=== PATIENT | male | born 1985 | race Caucasian/White ===

== ENCOUNTER 2017-04-28 10:37 | Emergency (ER) | payer MEDICAID, SELFPAY ==
[~2017-04-28] VITALS: Ht 167.6 cm; Wt 70.5 kg
[2017-04-28] MEDS ORDERED: OXYC1TAB23 PO (10:52)
[2017-04-28 12:39] VITALS: BP 127/90
== END 2017-04-28 12:40 | disposition home or self-care (01) ==
LOC: M ED 11:48
DX: M79.605 Pain in left leg (principal); Z87.39 Personal history of other diseases of the musculoskeletal system and connective tissue

== ENCOUNTER → 2017-05-05 | Outpatient (CLI) | payer SELFPAY ==
[~2017-05-05] MED LIST: OXYC1TAB23 PO
--- NOTE | 2017-05-06 08:43 | REP ---
MRI STUDY OF THE LEFT TIBIA AND FIBULA WITHOUT CONTRAST: HISTORY: Question ligament injury. The patient relates that plain radiographs from [facility] and orthopedic group demonstrate a high fibular fracture and an ankle fracture. TECHNIQUE: Sagittal, axial and coronal imaging planes utilized. T1 and T2-weighted scans are obtained. Sequences include spin echo and STIR sequences. FINDINGS: There is a prominent marrow edema pattern in the distal tibia involving the epiphysis and the posterior "malleolar" surface of the distal tibia. No definite cortical discontinuity is seen on these MR images. There is some adjacent soft tissue swelling. The distal fibula appears intact. There is a small quantity of ankle joint fluid. T2-weighted images in the axial plane at the level of the ankle show poor definition and some increased signal intensity along the course of the anterior talofibular ligament. The anterior inferior tibiofibular ligament appears to be disrupted. The posterior inferior tibiofibular ligament does not appear to be disrupted. The interosseous membrane appears intact through the calf. Proximally, there is a zone of prominent marrow edema in the proximal fibular head particularly posteriorly consistent with a nondisplaced fracture here. There is some adjacent soft tissue edema. There is a zone of marrow edema in the posterior tibial plateau medially consistent with marrow contusion. No other significant finding. IMPRESSION: Proximal fibular head and distal tibial posterior malleolar bony injuries. There is adjacent extraosseous soft tissue swelling at each site. Axial T2-weighted scans of the ankle suggest injuries to the anterior talofibular and the anterior inferior tibiofibular ligaments. Signed by Jovanny Pacheco MD 05/06/2017 03:30 P
== END ==
LOC: M RAD 18:35
PROVIDERS: ATTEND Orthopaedic Surgery
DX: S82.892A Other fracture of left lower leg, initial encounter for closed fracture (principal); W18.30XA Fall on same level, unspecified, initial encounter; Y92.009 Unspecified place in unspecified non-institutional (private) residence as the place of occurrence of the external cause

== ENCOUNTER 2017-08-04 15:19 | Emergency (ER) | payer SELFPAY ==
[~2017-08-04] VITALS: Ht 167.6 cm; Wt 68.2 kg
--- NOTE | 2017-08-04 17:05 | REP ---
LEFT TIBIA/FIBULA, FOUR VIEWS: HISTORY: Fall. There is no acute fracture or dislocation. The joint spaces are normal in appearance. IMPRESSION:There is no acute fracture or dislocation. Signed by Chidi Hung MD 08/05/2017 07:55 A
[2017-08-04 17:13] VITALS: BP 125/77
== END 2017-08-04 17:19 | disposition home or self-care (01) ==
LOC: M ED 15:19
DX: M79.605 Pain in left leg (principal); F17.210 Nicotine dependence, cigarettes, uncomplicated; Z87.81 Personal history of (healed) traumatic fracture; Z98.890 Other specified postprocedural states

== ENCOUNTER 2021-07-09 15:44 | Emergency (ER) | payer SELFPAY ==
[~2021-07-09] VITALS: Ht 167.6 cm; Wt 63.6 kg
[2021-07-09 15:57] VITALS: BP 150/74
== END 2021-07-09 16:45 | disposition left against medical advice (07) ==
LOC: M ED 15:44
DX: Z53.29 Procedure and treatment not carried out because of patient's decision for other reasons (principal)

== ENCOUNTER 2021-07-25 19:11 | Inpatient (IN) | payer OTHER, SELFPAY ==
[2021-07-25] MEDS ORDERED: LORazepam 2 MG TAB PO ONE (20:45)
--- NOTE | 2021-07-25 20:56 | REPVR ---
PROCEDURE INFORMATION: Exam: CT Head Without Contrast Exam date and time: 07/25/2021 8:20 PM Age: 36 years old Clinical indication: Altered mental status/memory loss; Additional info: AMS TECHNIQUE: Imaging protocol: Computed tomography of the head without contrast. Radiation optimization: All CT scans at this facility use at least one of these dose optimization techniques: automated exposure control; mA and/or kV adjustment per patient size (includes targeted exams where dose is matched to clinical indication); or iterative reconstruction. COMPARISON: No relevant prior studies available. FINDINGS: Brain: Normal. No hemorrhage. Unremarkable white matter. No mass effect. Cerebral ventricles: No ventriculomegaly. Paranasal sinuses: Visualized sinuses are unremarkable. No fluid levels. Mastoid air cells: Visualized mastoid air cells are well aerated. Bones/joints: Unremarkable. No acute fracture. Soft tissues: Unremarkable. IMPRESSION: No acute intracranial abnormality. Electronically signed by: Wade Mccann On 07/25/2021 20:55:57 PM
[2021-07-25 21:24] LABS: HEMATOCRIT 37.1 % (42.0-52.0); HEMOGLOBIN 12.3 g/dl (13.5-17.5); MEAN CORPUSCULAR HGB CONC 33.2 g/dl (32.0-36.5); MEAN CORPUSCULAR VOLUME 81.5 fl (80.0-96.0); PLATELET COUNT, AUTOMATED 495 10^3/uL (150-450); RED BLOOD COUNT 4.55 10^6/uL (4.30-6.10); WHITE BLOOD COUNT 8.4 10^3/uL (4.0-10.0)
[2021-07-25 21:35] LABS: ACETAMINOPHEN LEVEL < 2.0 UG/ML (10.0-30.0); ALBUMIN 3.3 GM/DL (3.2-5.2); ALT/SGPT 47 U/L (12-78); BILIRUBIN,DIRECT 0.1 MG/DL (0.0-0.2); BILIRUBIN,TOTAL 0.5 MG/DL (0.2-1.0); BLOOD UREA NITROGEN 15 MG/DL (7-18); CALCIUM LEVEL 9.2 MG/DL (8.5-10.1); CARBON DIOXIDE LEVEL 26 MEQ/L (21-32); CHLORIDE LEVEL 99 MEQ/L (98-107); ETHYL ALCOHOL (ETHANOL) 0.003 % (0.000-0.010); GLOMERULAR FILTRATION RATE > 60.0 (>60); GLUCOSE, FASTING 83 MG/DL (70-100); POTASSIUM SERUM 3.9 MEQ/L (3.5-5.1); SALICYLATE LEVEL < 1.7 MG/DL (5.0-30.0); SODIUM LEVEL 136 MEQ/L (136-145); TOTAL PROTEIN 6.9 GM/DL (6.4-8.2)
[2021-07-25 22:14] LABS: FREE T4 0.54 NG/DL (0.76-1.46)
[2021-07-26 01:00] LABS: AMPHETAMINES LEVEL URINE POSITIVE (NEGATIVE); BARBITURATES URINE NEGATIVE (NEGATIVE); BENZODIAZEPINES URINE NEGATIVE (NEGATIVE); CANNABINOIDS URINE NEGATIVE (NEGATIVE); COCAINE METABOLITE URINE NEGATIVE (NEGATIVE); METHADONE URINE NEGATIVE (NEGATIVE); OPIATES URINE NEGATIVE (NEGATIVE); PHENCYCLIDINE URINE NEGATIVE (NEGATIVE)
[2021-07-26 01:13] LABS: RSV AMPLIFICATION NEGATIVE (NEGATIVE)
[2021-07-26] MEDS ORDERED: MAALOX 30 ML SUSP *UDC PO PRN (01:20)
[2021-07-26] MEDS ORDERED: MOM 30ML SUSPENSION UDC PO PRN (01:20)
[2021-07-26] MEDS ORDERED: OLANZapine ORAL DISINTEGRATING TAB 5MG PO PRN (01:20)
[2021-07-26] MEDS ORDERED: NICOTINE 21MG/24HR 1 EA TRANSDERMAL TD PRN (01:20)
[2021-07-26] MEDS ORDERED: HOME MED LIST COMPLETE! XX SCH (01:35)
--- NOTE | 2021-07-26 05:19 | ECGEPIP ---
[facility] - ED Test Date: 2021-07-25 Pat Name: ANTONELLA GUO Department: Room: - Gender: Male Legal Billing Specialist: zachary : 1985 Requested By: Semaj Corona Order Number: [id number] Reading MD: Semaj Munoz Measurements Intervals Hinkley Rate: 96 P: 58 IN: 114 QRS: 66 QRSD: 100 T: 23 QT: 368 QTc: 464 Interpretive Statements Normal sinus rhythm NONSPECIFIC T WAVE ABNORMALITY(S) NO PRIORS FOR COMPARISON Electronically Signed on 07-26-2021 5:19:37 EDT by Semaj Munoz
[2021-07-26 10:05] VITALS: BP 138/70
--- NOTE | 2021-07-26 12:13 | MHHPEPDOC ---
General Date Of Admission: Jul 26, 2021 Legal Status: 9.39 Chief Complaint "leave me alone" History of Present Illness HISTORY OF THE PRESENT ILLNESS: Patient is a 36 -year-old , male, with history of polysubstance abuse, meth recently, remote history of opioid use. Patient was lying in bed, desponded, poorly interactive agrees to medications for agitation. Most of the information was gathered from chart review. Patient not agreeable to providing information such as release of information and would rather just lye in bed. When asked if he give him agitation notes that he was agreeable for acute stabilization. per paraphrase of PSA evaluation was brought in by police on 45 pickup order after ED provider was called by patient's mother Lorin Dawson. She was concerned for his safety and stated he made homicidal threats toward his grandfather who is 82 years old and he resides with, was also making suicidal statement. Reported he was psychotic, paranoid, and had thoughts of pouring bleach on himself to get rid of symptoms of delusional parasitosis. Lab tox screen positive for methamphetamine. Psychiatric Review of Systems Depression (2 or more weeks): depressed mood Past Psychiatric History Per chart review previous hospitalization [place] ages [age], patient had reported it was due to arguing with his children's mother that brought him in. No medications on file Past Medical History Medical Problems History close left ankle fracture, unable to get further information due to patient not being compliant with interview, lying in bed and appearing internally preoccupied Family Medical/Psychiatric HX Medical Problems None indicated Psychiatric Disorders: No Addiction: No Suicide Attemps/Completions: No Addiction History opioids (Remote history of IV heroin), methamphetamines (Daily methamphetamine use corroborated by 8-year-old grandfather whom he lives with) Social History Childhood: Unable to assess, patient noncompliant with interview Abuse/Trauma:Unable to assess, patient noncompliant with interview Current Living Situation: Lives in [facility] with 82-year-old grandpa Education: Unclear Employment: [employer] per chart Social Support: Mother and grandpa Legal: Unclear Marital: Single Per chart review Mental Status Examination General Appearance: unkempt, disheveled Build: average, thin Demeanor: hostile, mistrustful, withdrawn, preoccupied, guarded Eye Contact: avoidant Activity: slowed, anxious Behavior: uncooperative, resistant, withdrawn Speech: clear, slow, low in volume, non-spontaneous Mood: depressed Affect: flat, disorganized Thought Process: slow Thought Content (Delusions): none reported Thought Content (Other): none reported Thought Content (Aggressive): none reported Perception (Hallucinations): none reported Perception (Other): none reported Cognition (Impairment of): none reported Oriented: Awake, Alert Insight: poor Judgment: Poor Psychosis: Denies Diagnoses Substance-induced psychotic disorder Rule out schizophrenia, schizoaffective disorder, bipolar 1/2 A-FIB/CHADSVASC A-FIB History Current/History of A-Fib/PAF?: No Current PO Anticoag Therapy: No Age/Risk Factor Scoring CHADSVASC: CHADSVASC Response (Comments) Value Age Risk Factor Age < 65 years old 0 Gender Risk Factor Male 0 Hx of CHF No 0 Hx of HTN No 0 Hx of Stroke/TIA/or VTE No 0 Hx of Diabetes No 0 Hx of Vascular Disease No 0 Total 0 Treatment Treatment ordered: NONE Reason Anticoagulant not given: Not indicated/[id number], Other (Defer to hospitalist team) Other reason anticoagulant not: Pending hospitalist evaluation Assessment Patient is a 36-year-old male with unknown past psychiatric history who presents after mother called on pickup order to bring him in due to bizarre disorganized behavior, including delusional parasitosis and wanting to bleach himself to clean out the bugs, also was positive for methamphetamine despite denying any use recently and reportedly not having any outpatient medications per chart review. Thyroid panel is elevated showing a TSH of 35, and a low T4. Spoke team will be made aware to the work-up for thyroid supplementation in cont ext of hypothyroidism. Reordered a TSH for tomorrow. Initial Treatment Plan 1. Patient was admitted on a [9.39] status. 2. Complete history was obtained. 3. With patients permission, family will be contacted and database will be expanded. 4. Patients medication regimen will be reviewed and changed accordingly. 5. Patient will be provided with protected environment. 6. Patient will be treated with individual, group, and milieu therapies. 7. Patient will receive supportive psych-education. 8. Discharge planning will commence immediately. 9. Outpatient follow-up treatment will be strongly recommended. 10. The initial treatment plan will focus initially on: * Depression/psychosis * Risk for suicide. ESTIMATED LENGTH OF STAY: 2-7 DAYS. TIME SPENT COUNSELING AND COORDINATING INITIAL CARE: 40 minutes. Tobacco Cessation Screen If Patient is a Smoker yes Tobacco Cessation Tx Ordered?: Yes Ordered/Pending Vital Signs Vital Signs Date Time Temp Pulse Resp B/P (MAP) Pulse Ox O2 Delivery O2 Flow Rate FiO2 07/26/21 10:05 98.2 82 18 138/70 100 Room Air Laboratory Data 24H Labs Laboratory Tests 2 07/25/21 20:34: Nucleated Red Blood Cells % (auto) 0.0, Anion Gap 11, Glomerular Filtration Rate > 60.0, Calcium Level 9.2, Total Bilirubin 0.5, Direct Bilirubin 0.1, Aspartate Amino Transf (AST/SGOT) 47H, Alanine Aminotransferase (ALT/SGPT) 47, Alkaline Phosphatase 75, Total Protein 6.9, Albumin 3.3, Albumin/Globulin Ratio 0.9, Thyroid Stimulating Hormone (TSH) 30.500H, Free Thyroxine 0.54L, Salicylates Level < 1.7L, Acetaminophen Level < 2.0L, Ethyl Alcohol Level 0.003 07/25/21 23:51: Urine Opiates Screen NEGATIVE, Urine Methadone Screen NEGATIVE, Urine Barbiturates Screen NEGATIVE, Urine Phencyclidine Screen NEGATIVE, Urine Amphetamines Screen POSITIVEH, Urine Benzodiazepines Screen NEGATIVE, Urine Cocaine Metabolite Screen NEGATIVE, Urine Cannabinoids Screen NEGATIVE 07/26/21 00:31: Coronavirus (COVID-19)(PCR) NEGATIVE, Influenza Type A (RT-PCR) NEGATIVE, Influenza Type B (RT-PCR) NEGATIVE, Respiratory Syncytial Virus (PCR) NEGATIVE CBC/BMP Laboratory Tests 07/25/21 20:34 Medications No Active Prescriptions or Reported Meds Allergies Coded Allergies: No Known Allergies (Unverified , 04/28/17) MACHO HERNANDEZ MD Jul 26, 2021 12:13
--- NOTE | 2021-07-26 12:56 | MHIPNPDOC ---
[facility] Progress Note Progress Note DATE OF SERVICE: 07/26/21 spoke with pharmacy to do medrec, per chart review on further review of external med list, has a history of 25 mg of Zoloft, 25 mg of nortriptyline, history of gabapentin use, history of steroids and other home medications. Vital Signs Vital Signs Date Time Temp Pulse Resp B/P (MAP) Pulse Ox O2 Delivery O2 Flow Rate FiO2 07/26/21 10:05 98.2 82 18 138/70 100 Room Air Laboratory Data 24H Labs Laboratory Tests 2 07/25/21 20:34: Nucleated Red Blood Cells % (auto) 0.0, Anion Gap 11, Glomerular Filtration Rate > 60.0, Calcium Level 9.2, Total Bilirubin 0.5, Direct Bilirubin 0.1, Aspartate Amino Transf (AST/SGOT) 47H, Alanine Aminotransferase (ALT/SGPT) 47, Alkaline Phosphatase 75, Total Protein 6.9, Albumin 3.3, Albumin/Globulin Ratio 0.9, Thyroid Stimulating Hormone (TSH) 30.500H, Free Thyroxine 0.54L, Salicylates Level < 1.7L, Acetaminophen Level < 2.0L, Ethyl Alcohol Level 0.003 07/25/21 23:51: Urine Opiates Screen NEGATIVE, Urine Methadone Screen NEGATIVE, Urine Barbiturates Screen NEGATIVE, Urine Phencyclidine Screen NEGATIVE, Urine Amphetamines Screen POSITIVEH, Urine Benzodiazepines Screen NEGATIVE, Urine Cocaine Metabolite Screen NEGATIVE, Urine Cannabinoids Screen NEGATIVE 07/26/21 00:31: Coronavirus (COVID-19)(PCR) NEGATIVE, Influenza Type A (RT-PCR) NEGATIVE, Influenza Type B (RT-PCR) NEGATIVE, Respiratory Syncytial Virus (PCR) NEGATIVE CBC/BMP Laboratory Tests 07/25/21 20:34 Current Medications Current Medications Medications (Trade) Dose Ordered Sig/Garry Route PRN Reason Start Time Stop Time Status Last Admin Dose Admin Acetaminophen (Tylenol Tab) 650 mg Q6HP PRN PO HEADACHE or MILD DISCOMFORT 07/26/21 01:20 Al Hydrox/Mg Hydrox/Simethicone (Mylanta) 30 ml Q4HP PRN PO HEARTBURN/INDIGESTION 07/26/21 01:20 Home Med (Home Med List Complete!) ASDIRECTED XX 07/26/21 01:35 07/26/21 01:44 DC Magnesium Hydroxide (Milk Of Magnesia) 30 ml DAILYPRN PRN PO CONSTIPATION 07/26/21 01:20 Nicotine (Nicoderm Cq 21mg) 1 patch DAILY PRN TD NICOTINE WITHDRAWAL 07/26/21 01:20 Olanzapine (ZyPREXA ZYDIS) 5 mg Q4HP PRN PO AGITATION 07/26/21 01:20 Olanzapine (ZyPREXA) 5 mg QHS PO 07/26/21 21:00 Trazodone HCl (Desyrel) 50 mg QHSP PRN PO INSOMNIA 07/26/21 01:20 Allergies Coded Allergies: No Known Allergies (Unverified , 04/28/17) MACHO HERNANDEZ MD Jul 26, 2021 12:56
[2021-07-26] MEDS ORDERED: FAMO20TA5 PO (13:51)
[2021-07-26] MEDS ORDERED: HYDR-3363 PO (13:51)
[2021-07-26] MEDS ORDERED: GABA-282 PO (13:51)
--- NOTE | 2021-07-26 14:19 | HPEPDOC ---
[facility] Medical History & Physical Date of Admission Jul 26, 2021 Date of Service: Jul 26, 2021 History and Physical CHIEF COMPLAINT: " Mom called the police" HISTORY OF PRESENT ILLNESS: 36-year-old male with a past medical history of polysubstance abuse reported he was brought to the emergency room department after his mother called the police because he was not answering his phone. Upon review of the chart, he was br ought in by the police after the ED provider was reportedly called by the patient's mother. She was concerned of safety, as the patient had made homicidal threats towards his grandfather. Upon examination, he was fixed on having a skin condition which she had tried multiple substance to cleanse hi [facility] for including bleach. At this junction, he denied any other complaints including chest pain, abdominal pain, nausea, vomiting, problems with urination or bowel movements. He denied palpitations, heat/cold intolerance, weight changes, change in hair pattern. PAST MEDICAL HISTORY: As mentioned above PAST SURGICAL HISTORY: Reports left groin lymphadenopathy, unable to provide details SOCIAL HISTORY: Smokes half a pack to pack a day. Denied recreational drug use (despite positive tox), and alcohol use. FAMILY HISTORY: Unable to provide details ALLERGIES: Please see below. REVIEW OF SYSTEMS: 10 point review of system was negative except for what is noted in the HPI HOME MEDICATIONS: Please see below. PHYSICAL EXAMINATION: VITAL SIGNS: Please see below General: Lying in bed, no acute distress Head/Neck/Throat: Trachea midline, mucous membranes moist Eyes: Sclera anicteric, no erythema or discharge appreciated bilaterally Thorax: Normal respiratory effort on room air, lungs clear to auscultation bilaterally, no wheezes/rales/rhonchi Cardiovascular: Normal rate, regular rhythm, normal S1, S2; no S3, S4, rubs/gallops/murmurs Abdomen: Bowel sounds present, soft/nontender/nondistended Genitourinary: No CVA tenderness, no Larsen in place Musculoskeletal: Moving all extremities, no edema Skin: There are multiple lesions throughout his body consistent with excoriation, cuts, and dyspigmentation Neurologic: AAOx3, speech fluent and goal-directed, no focal deficits, grossly intact LABORATORY DATA: See below. IMAGING: CT scan showed no acute intracranial abnormality MICROBIOLOGY: Please see below. 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 Recommend to apply emollient to skin. Local wound care to lesions on the foot. #Substance abuse psychosis -Tox. screen positive for amphetamines. -Symptomatic management, as per psychiatry team #Elevated TSH -Patterns as of right now are consistent with hyperthyroidism. We will repeat to confirm, if TSH remains elevated will start patient on Synthroid. #DVT ppx -Encourage ambulation History and physical was done in the presence of a repertoire manager. Vital Signs Vital Signs Date Time Temp Pulse Resp B/P (MAP) Pulse Ox O2 Delivery O2 Flow Rate FiO2 07/26/21 10:05 98.2 82 18 138/70 100 Room Air Laboratory Data Labs 24H Laboratory Tests 2 07/25/21 20:34: Nucleated Red Blood Cells % (auto) 0.0, Anion Gap 11, Glomerular Filtration Rate > 60.0, Calcium Level 9.2, Total Bilirubin 0.5, Direct Bilirubin 0.1, Aspartate Amino Transf (AST/SGOT) 47H, Alanine Aminotransferase (ALT/SGPT) 47, Alkaline Phosphatase 75, Total Protein 6.9, Albumin 3.3, Albumin/Globulin Ratio 0.9, Thyroid Stimulating Hormone (TSH) 30.500H, Free Thyroxine 0.54L, Salicylates Level < 1.7L, Acetaminophen Level < 2.0L, Ethyl Alcohol Level 0.003 07/25/21 23:51: Urine Opiates Screen NEGATIVE, Urine Methadone Screen NEGATIVE, Urine Barbiturates Screen NEGATIVE, Urine Phencyclidine Screen NEGATIVE, Urine Amphetamines Screen POSITIVEH, Urine Benzodiazepines Screen NEGATIVE, Urine Cocaine Metabolite Screen NEGATIVE, Urine Cannabinoids Screen NEGATIVE 07/26/21 00:31: Coronavirus (COVID-19)(PCR) NEGATIVE, Influenza Type A (RT-PCR) NEGATIVE, Influenza Type B (RT-PCR) NEGATIVE, Respiratory Syncytial Virus (PCR) NEGATIVE CBC/BMP Laboratory Tests 07/25/21 20:34 Home Medications Scheduled PRN Gabapentin (Gabapentin) 300 Mg Capsule, 300 MG PO TID PRN for NERVE PAIN Hydroxyzine HCl (Hydroxyzine HCl) 25 Mg Tablet, 25 MG PO BID PRN for ITCHING Allergies Coded Allergies: No Known Allergies (Unverified , 04/28/17) A-FIB/CHADSVASC A-FIB History Current/History of A-Fib/PAF?: No Age/Risk Factor Scoring CHADSVASC: CHADSVASC Response (Comments) Value Age Risk Factor Age < 65 years old 0 Gender Risk Factor Male 0 Hx of CHF No 0 Hx of HTN No 0 Hx of Stroke/TIA/or VTE No 0 Hx of Diabetes No 0 Hx of Vascular Disease No 0 Total 0 GERALD ANTON M.D. Jul 26, 2021 14:06
[2021-07-26 16:15] VITALS: BP 121/80
[2021-07-26] MEDS: MUPIROCIN 2% OINT 22 GM TUBE TOP SCH (16:24)
[2021-07-26] MEDS: ACETAMINOPHEN TAB 650MG DOSE (2X325MG) PO PRN (18:54)
[2021-07-26] MEDS: traZODone 50 MG TAB PO PRN (20:52)
[2021-07-26] MEDS: OLANZapine 5 MG TAB PO SCH (20:52)
[2021-07-27] MEDS: MUPIROCIN 2% OINT 22 GM TUBE TOP SCH (09:00)
--- NOTE | 2021-07-27 11:25 | MHIPNPDOC ---
[facility] Progress Note Progress Note DATE OF SERVICE: 07/27/21 HISTORY: Patient is a 36 -year-old , male, with history of polysubstance abuse, meth recently, remote history of opioid us, was brought into ED after making homicidal statements towards grandfather. Today continues to be lying in bed, despondent, with eyes closed answers in one- word questions. Did take his overnight olanzapine. Denies all psychiatric symptoms when talking to him but is not engaged on interview. VITAL SIGNS: See below. NEW TEST RESULTS: TSH and FT4 were canceled, reordered TSH and FT4 pending to evaluate for hypothyroidism CURRENT MEDICATIONS: See below. MENTAL STATUS EXAMINATION (no change from yesterday) General Appearance: unkempt, disheveled Build: average, thin Demeanor: hostile, mistrustful, withdrawn, preoccupied, guarded Eye Contact: avoidant Activity: slowed, anxious Behavior: uncooperative, resistant, withdrawn Speech: clear, slow, low in volume, non-spontaneous Mood: still depressed Affect: flat, disorganized, withdrawn Thought Process: slow Thought Content (Delusions): none reported Thought Content (Other): none reported Thought Content (Aggressive): none reported Perception (Hallucinations): none reported Perception (Other): none reported Cognition (Impairment of): none reported Oriented: Awake, Alert Insight: poor Judgment: Poor Psychosis: Denies DIAGNOSES: Substance-induced psychotic disorder Rule out schizophrenia, schizoaffective disorder, bipolar 1/2 ASSESSMENT: Patient continues to be despondent, lying in bed, poorly cooperative to interview, despite this is taking his nighttime olanzapine, will reevaluate tomorrow for psychotic symptoms in further detail. MANAGEMENT PLAN: Needs recurrent stated likely psychotic presentation and ongoing symptoms, continue medications, reordered TSH and FT4 to evaluate for hypothyroidism, as was previously canceled. TIME SPENT:15 minutes. Vital Signs Vital Signs Date Time Temp Pulse Resp B/P (MAP) Pulse Ox O2 Delivery O2 Flow Rate FiO2 07/26/21 16:15 98.8 99 18 121/80 (94) 98 Room Air Current Medications Current Medications Medications (Trade) Dose Ordered Sig/Garry Route PRN Reason Start Time Stop Time Status Last Admin Dose Admin Acetaminophen (Tylenol Tab) 650 mg Q6HP PRN PO HEADACHE or MILD DISCOMFORT 07/26/21 01:20 07/26/21 18:54 Al Hydrox/Mg Hydrox/Simethicone (Mylanta) 30 ml Q4HP PRN PO HEARTBURN/INDIGESTION 07/26/21 01:20 Home Med (Home Med List Complete!) ASDIRECTED XX 07/26/21 01:35 07/26/21 01:44 DC Magnesium Hydroxide (Milk Of Magnesia) 30 ml DAILYPRN PRN PO CONSTIPATION 07/26/21 01:20 Mupirocin (Bactroban 2% Ointment) Apply to cuts on hands/f... DAILY TOP 07/26/21 16:00 07/26/21 16:24 Nicotine (Nicoderm Cq 21mg) 1 patch DAILY PRN TD NICOTINE WITHDRAWAL 07/26/21 01:20 Olanzapine (ZyPREXA ZYDIS) 5 mg Q4HP PRN PO AGITATION 07/26/21 01:20 07/26/21 20:52 Olanzapine (ZyPREXA) 5 mg QHS PO 07/26/21 21:00 07/26/21 20:52 Trazodone HCl (Desyrel) 50 mg QHSP PRN PO INSOMNIA 07/26/21 01:20 07/26/21 20:52 Allergies Coded Allergies: No Known Allergies (Unverified , 04/28/17) MACHO HERNANDEZ MD Jul 27, 2021 11:25
[2021-07-27 12:37] LABS: CHOLESTEROL RISK RATIO 2.714 (<5); FREE T4 0.44 NG/DL (0.76-1.46); THYROID STIMULATING HORMONE 46.6 uIU/ML (0.358-3.740)
[2021-07-27] MEDS: LEVOTHYROXINE 100MCG TABLET (0.1MG) PO SCH (12:55)
[2021-07-27 16:11] VITALS: BP 108/63
[2021-07-27] MEDS: OLANZapine 5 MG TAB PO SCH (21:32)
[2021-07-27] MEDS: traZODone 50 MG TAB PO PRN (21:34)
[2021-07-28] MEDS: LEVOTHYROXINE 100MCG TABLET (0.1MG) PO SCH (05:51)
[2021-07-28 07:01] VITALS: BP 106/63
[2021-07-28] MEDS: MUPIROCIN 2% OINT 22 GM TUBE TOP SCH (09:00)
--- NOTE | 2021-07-28 15:06 | MHIPNPDOC ---
[facility] Progress Note Progress Note DATE OF SERVICE: 07/28/21 HISTORY: Patient is a 36-year-old single, unemployed, domiciled, male who was brought in on a [address] Swanson for psychotic and bizarre and delusional behaviors. His mother also reported that the patient had made homicidal threats towards his elderly grandfather with whom he lives. Patient was positive for methamphetamines in the urine drug screen VITAL SIGNS: See below. CURRENT MEDICATIONS: See below. MENTAL STATUS EXAMINATION: Patient is a 36-year-old single, unemployed, domiciled, male who was brought in on a 941 for psychotic and bizarre and delusional behaviors also he made homicidal threats towards his elderly grandfather with whom he lives. Demeanor: hostile, mistrustful, withdrawn, preoccupied, guarded Eye Contact: avoidant Activity: slowed, anxious Behavior: uncooperative, resistant, withdrawn Speech: clear, slow, low in volume, non-spontaneous Mood: depressed Affect: flat, disorganized Thought Process: slow Thought Content (Delusions): none reported Thought Content (Other): none reported Thought Content (Aggressive): none reported Perception (Hallucinations): none reported Perception (Other): none reported Cognition (Impairment of): none reported Oriented: Awake, Alert Insight: poor Judgment: Poor Psychosis: Denies DIAGNOSES: Substance-induced psychotic disorder Rule out schizophrenia, schizoaffective disorder, bipolar 1/2 ASSESSMENT: Found lying in his bed. Patient remained withdrawn and guarded. Refused to engage in interview. Refused to answer questions, had minimal to no responses and stated he wanted to go to sleep. States, "leave me alone" per staff reporting patient remains isolative and withdrawn. Does not engage in milieu therapy or groups. Patient has not attended to his ADLs but is compliant with medications. Observed with poor insight and judgment as he has very little motivation to engage in treatment. MANAGEMENT PLAN: Continue medications as ordered and also continue supportive therapies. Discharge when stable TIME SPENT: 15-minute minutes. Vital Signs Vital Signs Date Time Temp Pulse Resp B/P (MAP) Pulse Ox O2 Delivery O2 Flow Rate FiO2 07/28/21 07:01 98.7 95 20 106/63 (77) 95 Room Air Current Medications Current Medications Medications (Trade) Dose Ordered Sig/Garry Route PRN Reason Start Time Stop Time Status Last Admin Dose Admin Acetaminophen (Tylenol Tab) 650 mg Q6HP PRN PO HEADACHE or MILD DISCOMFORT 07/26/21 01:20 07/26/21 18:54 Al Hydrox/Mg Hydrox/Simethicone (Mylanta) 30 ml Q4HP PRN PO HEARTBURN/INDIGESTION 07/26/21 01:20 Home Med (Home Med List Complete!) ASDIRECTED XX 07/26/21 01:35 07/26/21 01:44 DC Levothyroxine Sodium (Synthroid) 100 mcg DAILY@06 PO 07/27/21 06:00 Magnesium Hydroxide (Milk Of Magnesia) 30 ml DAILYPRN PRN PO CONSTIPATION 07/26/21 01:20 Mupirocin (Bactroban 2% Ointment) Apply to cuts on hands/f... DAILY TOP 07/26/21 16:00 07/26/21 16:24 Nicotine (Nicoderm Cq 21mg) 1 patch DAILY PRN TD NICOTINE WITHDRAWAL 07/26/21 01:20 Olanzapine (ZyPREXA ZYDIS) 5 mg Q4HP PRN PO AGITATION 07/26/21 01:20 07/26/21 20:52 Olanzapine (ZyPREXA) 5 mg QHS PO 07/26/21 21:00 07/27/21 21:32 Trazodone HCl (Desyrel) 50 mg QHSP PRN PO INSOMNIA 07/26/21 01:20 07/27/21 21:34 Allergies Coded Allergies: No Known Allergies (Unverified , 04/28/17) MILI SANDS NP Jul 28, 2021 15:02
[2021-07-28 18:11] VITALS: BP 124/85
[2021-07-28] MEDS: OLANZapine 5 MG TAB PO SCH (20:38)
[2021-07-29] MEDS: LEVOTHYROXINE 100MCG TABLET (0.1MG) PO SCH (05:36)
[2021-07-29 06:00] VITALS: BP 131/88
[2021-07-29] MEDS: MUPIROCIN 2% OINT 22 GM TUBE TOP SCH (09:53)
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
[2021-07-29] MEDS: ACETAMINOPHEN TAB 650MG DOSE (2X325MG) PO PRN (17:12)
[2021-07-29 17:22] VITALS: BP 126/83
[2021-07-29] MEDS: OLANZapine 5 MG TAB PO SCH (21:01)
[2021-07-29] MEDS: traZODone 50 MG TAB PO PRN (21:01)
[2021-07-30] MEDS: LEVOTHYROXINE 100MCG TABLET (0.1MG) PO SCH (05:37)
[2021-07-30 06:42] VITALS: BP 134/78
[2021-07-30] MEDS: MUPIROCIN 2% OINT 22 GM TUBE TOP SCH (09:34)
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
[2021-07-30 16:02] VITALS: BP 134/74
[2021-07-30] MEDS: traZODone 50 MG TAB PO PRN (21:09)
[2021-07-30] MEDS: OLANZapine 5 MG TAB PO SCH (21:09)
[2021-07-31] MEDS: LEVOTHYROXINE 100MCG TABLET (0.1MG) PO SCH ×2 (05:50→05:54)
[2021-07-31 06:38] VITALS: BP 131/74
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
[2021-07-31] MEDS: MUPIROCIN 2% OINT 22 GM TUBE TOP SCH (10:03)
[2021-07-31 18:54] VITALS: BP 136/87
[2021-07-31] MEDS: ACETAMINOPHEN TAB 650MG DOSE (2X325MG) PO PRN (19:10)
[2021-07-31] MEDS: OLANZapine 5 MG TAB PO SCH (20:52)
[2021-07-31] MEDS: traZODone 50 MG TAB PO PRN (20:52)
[2021-08-01] MEDS: LEVOTHYROXINE 100MCG TABLET (0.1MG) PO SCH (06:00)
[2021-08-01 06:36] VITALS: BP 159/91
[2021-08-01] MEDS: MUPIROCIN 2% OINT 22 GM TUBE TOP SCH (08:00)
[2021-08-01] MEDS ORDERED: NICO21PAT TD (09:22)
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
== END 2021-08-01 12:26 | disposition home or self-care (01) | DRG 776 ==
LOC: M ED 19:11 → M PSY 07-26 01:59
PROVIDERS: ADMIT Student in an Organized Health Care Education/Training Program; ATTEND Psychiatry & Neurology Psychiatry
DX: F15.159 Other stimulant abuse with stimulant-induced psychotic disorder, unspecified (principal); F20.9 Schizophrenia, unspecified; Z20.822 Contact with and (suspected) exposure to COVID-19; Z79.899 Other long term (current) drug therapy; L85.3 Xerosis cutis; F40.228 Other natural environment type phobia; F17.200 Nicotine dependence, unspecified, uncomplicated

== ENCOUNTER 2023-04-26 20:45 | Emergency (ER) | payer OTHER ==
[~2023-04-26] VITALS: Ht 177.8 cm; Wt 85.8 kg
[~2023-04-26 20:45] MED LIST changes: +FAMO20TA5 PO; +GABA-282 PO; +HYDR-3363 PO; +NICO21PAT TD
[2023-04-26] MEDS ORDERED: NS 1,000 ML IV ONE (21:00)
[2023-04-26 22:00] LABS: BASO # 0.1 10^3/uL (0.0-0.2); BASO % 0.3 % (0.0-1.0); EOS # 0.1 10^3/uL (0.0-0.5); EOS % 0.3 % (0.0-3.0); HEMOGLOBIN 12.9 g/dl (13.5-17.5); LYMPH # 0.6 10^3/uL (1.5-5.0); LYMPH % 2.9 % (24.0-44.0); MEAN CORPUSCULAR HEMOGLOBIN 28.4 pg (27.0-33.0); MEAN CORPUSCULAR HGB CONC 32.3 g/dl (32.0-36.5); MEAN CORPUSCULAR VOLUME 87.9 fl (80.0-96.0); MONO # 1.4 10^3/uL (0.0-0.8); MONO % 6.6 % (2.0-8.0); NEUTROPHILS % 89.2 % (36.0-66.0); PLATELET COUNT, AUTOMATED 432 10^3/uL (150-450); RED BLOOD COUNT 4.55 10^6/uL (4.30-6.10); WHITE BLOOD COUNT 21.3 10^3/uL (4.0-10.0)
[2023-04-26 22:15] VITALS: TEMP 98.9
[2023-04-26 22:22] LABS: ALBUMIN 3.8 G/DL (3.2-5.2); ALKALINE PHOSPHATASE 109 U/L (46-116); ALT/SGPT 31 U/L (7.0-40); AST/SGOT 35 U/L (<34); BILIRUBIN,TOTAL 0.2 MG/DL (0.3-1.2); BLOOD UREA NITROGEN 29 MG/DL (9-23); CALCIUM LEVEL 9.1 MG/DL (8.5-10.1); CARBON DIOXIDE LEVEL 23 MMOL/L (20-31); CHLORIDE LEVEL 105 MMOL/L (98-107); CREATININE FOR GFR 1.22 MG/DL (0.70-1.30); GLOMERULAR FILTRATION RATE > 60.0 (>60); GLUCOSE, FASTING 118 MG/DL (60-100); POTASSIUM SERUM 4.4 MMOL/L (3.5-5.1); SODIUM LEVEL 136 MMOL/L (136-145); TOTAL PROTEIN 7.7 G/DL (5.7-8.2)
[2023-04-27] MEDS ORDERED: IBUPROFEN 800 MG TAB PO ONE (05:30)
[2023-04-27] MEDS ORDERED: ISOVUE-370 76% 100ML VIAL As Ordered ONE (07:26)
[2023-04-27] MEDS ORDERED: NS 1,000 ML IV ONE (07:30)
[2023-04-27 08:53] LABS: ETHYL ALCOHOL (ETHANOL) < 0.003 % (0.000-0.010)
[2023-04-27 09:25] LABS: BARBITURATES URINE NEGATIVE (NEGATIVE); BENZODIAZEPINES URINE NEGATIVE (NEGATIVE); COCAINE METABOLITE URINE NEGATIVE (NEGATIVE)
[2023-04-27 09:26] LABS: CANNABINOIDS URINE NEGATIVE (NEGATIVE); METHADONE URINE NEGATIVE (NEGATIVE); OPIATES URINE NEGATIVE (NEGATIVE); PHENCYCLIDINE URINE NEGATIVE (NEGATIVE)
[2023-04-27 09:29] LABS: ETHYL ALCOHOL (ETHANOL) < 0.003 % (0.000-0.010)
[2023-04-27 09:31] LABS: SALICYLATE LEVEL < 3.0 MG/DL (<30)
[2023-04-27 09:32] LABS: ACETAMINOPHEN LEVEL < 2.0 UG/ML (10.0-20.0); AMPHETAMINES LEVEL URINE POSITIVE (NEGATIVE)
[2023-04-27 09:53] LABS: BASO # 0.1 10^3/uL (0.0-0.2); BASO % 0.8 % (0.0-1.0); EOS # 0.4 10^3/uL (0.0-0.5); EOS % 4.6 % (0.0-3.0); HEMATOCRIT 34.8 % (42.0-52.0); HEMOGLOBIN 11.2 g/dl (13.5-17.5); LYMPH # 1.1 10^3/uL (1.5-5.0); LYMPH % 14.6 % (24.0-44.0); MEAN CORPUSCULAR HEMOGLOBIN 28.9 pg (27.0-33.0); MEAN CORPUSCULAR HGB CONC 32.2 g/dl (32.0-36.5); MEAN CORPUSCULAR VOLUME 89.7 fl (80.0-96.0); MONO # 0.7 10^3/uL (0.0-0.8); MONO % 8.9 % (2.0-8.0); NEUTROPHILS # 5.4 10^3/uL (1.5-8.5); NEUTROPHILS % 70.8 % (36.0-66.0); PLATELET COUNT, AUTOMATED 354 10^3/uL (150-450); RED BLOOD COUNT 3.88 10^6/uL (4.30-6.10); WHITE BLOOD COUNT 7.6 10^3/uL (4.0-10.0)
[2023-04-27 10:52] LABS: ERYTHROCYTE SEDIMENTATION RATE 31 mm/hr (0-15)
[2023-04-27 12:16] VITALS: BP 109/61; O2SAT 100
== END 2023-04-27 12:54 | disposition home or self-care (01) ==
LOC: M ED 20:45
DX: F19.10 Other psychoactive substance abuse, uncomplicated (principal); N50.3 Cyst of epididymis; R10.9 Unspecified abdominal pain; Z79.899 Other long term (current) drug therapy
CPT/HCPCS: 36415; 70450; 71250; 72125; 74176; 74177; 76870; 80053; 80143; 80307; 82077; 83605; 85025; 85652; 86140; 87040; 87077; 93005; 93976; 99285; Q9967